=== PATIENT | female | born 1995 | race Caucasian/White ===

== ENCOUNTER 2017-05-12 10:03 | Emergency (ER) | payer OTHER ==
[~2017-05-12] VITALS: Ht 165.1 cm; Wt 75.5 kg
[~2017-05-12 10:03] MED LIST: CIPR500T4 PO; CYCL-319 PO; HYDR-3498 PO; IBUP-1542 PO
[2017-05-12 10:05] VITALS: Ht 165.1 cm; Wt 75.5 kg
[2017-05-12] MEDS ORDERED: KETOROLAC 30 MG INJ IV STA (11:02)
--- NOTE | 2017-05-12 11:17 | ERD ---
ER Documentation Chief Complaint Date/Time DATE: 05/12/17 TIME: 11:13 Chief Complaint pt bib self with c/o abd and back pain on and off for a while HPI 21-year-old female presents with a history of 1-2 years of intermittent crampy lower abdominal pain. She believes it started after delivering her child vaginally. She has had multiple studies including CT scans, ultrasound and is frustrated that she is not given a diagnosis. She has vomiting, fevers, urinary complaints. Denies diarrhea. Denies . She states she had a CT scan over a year ago. Patient states that the lower abdominal pain radiates to her lower back was told that she has kidney problems but no specific details only based upon location of her pain by another provider ROS All systems reviewed and are negative except as per history of present illness. Medications Home Meds Active Scripts Ibuprofen* (Motrin*) 600 Mg Tab, 600 MG PO Q6, #30 TAB Prov:AURELIO AYALA PA-C 03/01/16 Ciprofloxacin Hcl* (Ciprofloxacin Hcl*) 500 Mg Tablet, 500 MG PO BID, #14 TAB Prov:JEIMY TSANG PA-C 04/14/15 Hydrocodone Bit-Acetaminophen* ([place]*) 5-325 Mg Tab, 1 TAB PO Q4H Y for sev, # 30 TAB Prov:RED PEPPER NP 03/23/15 Ibuprofen* (Motrin*) 600 Mg Tab, 600 MG PO Q6H Y for PAIN AND OR ELEVATED TEMP, #30 Prov:RED PEPPER NP 03/23/15 Cyclobenzaprine Hcl* (Cyclobenzaprine Hcl*) 10 Mg Tablet, 5 MG PO TID, #15 TAB Prov:RED PEPPER NP 03/23/15 Allergies Allergies: Coded Allergies: No Known Allergy (Unverified , 02/28/12) PMhx/Soc History of Surgery: No Anesthesia Reaction: No Hx Neurological Disorder: No Hx Respiratory Disorders: No Hx Cardiac Disorders: No Hx Psychiatric Problems: No Hx Miscellaneous Medical Probl: No Hx Alcohol Use: Yes Hx Substance Use: No Hx Tobacco Use: Yes Physical Exam Vitals Vital Signs Date Time Temp Pulse Resp B/P Pulse Ox O2 Delivery O2 Flow Rate FiO2 05/12/17 10:05 97.8 68 20 119/58 98 Physical Exam Const: [] Letter, [id number]. Head: Atraumatic Eyes: Normal Conjunctiva ENT: Normal External Ears, Nose and Mouth. Neck: Full range of motion..~ No meningismus. Resp: Clear to auscultation bilaterally Cardio: Regular rate and rhythm, no murmurs Abd: Soft, very minimal tenderness in the suprapubic area and lower pelvic area. No rebound and no masses., non distended. Normal bowel sounds Skin: No petechiae or rashes Back: No midline or flank tenderness and possibly minimal tenderness in the L4-5 paraspinous muscles. No CVA tenderness. Ext: No cyanosis, or edema Neur: Awake and alert Psych: Normal Mood and Affect Results 24 hrs Current Medications Medications (Trade) Dose Ordered Sig/Micki Route PRN Reason Start Time Stop Time Status Last Admin Dose Admin Ketorolac Tromethamine (Toradol) 30 mg ONCE STAT IV 05/12/17 11:02 05/12/17 11:04 DC Procedures/MDM Patient was counseled on the availability of recommended studies for chronic lower abdominal pain. Her history suggests that she has had comprehensive evaluations for lower abdominal pain. Patient shows no signs or symptoms to suggest acute abdominal pain, febrile illness, sepsis, or emergent condition. Patient was offered repeat laboratory work and possible further radiologic studies given that it has been sometime since her last evaluation here at this hospital. Patient initially agreed but subsequently refused to give urine and wished to leave. Given the patient's had intermittent symptoms for several years and is otherwise well-appearing on advising patient follow-up with primary doctor for further evaluation and outpatient management. She should otherwise return for fevers, vomiting, new or worsening symptoms. Patient subsequently signed out refusing further treatment and AGAINST MEDICAL ADVICE. Departure Diagnosis: Primary Impression: Abdominal pain Abdominal location: lower abdomen, unspecified Qualified Code: R10.30 - Lower abdominal pain Condition: Stable Patient Instructions: Abdominal Pain, [place] Form- 1, Refusal Of Further Treatment DIONTE LIU MD May 12, 2017 11:17
== END 2017-05-12 11:39 | disposition left against medical advice (07) ==
LOC: FTE 10:03
DX: R10.30 Lower abdominal pain, unspecified (principal); Z87.891 Personal history of nicotine dependence
CPT/HCPCS: 99282

== ENCOUNTER 2017-06-10 02:43 | Emergency (ER) | payer OTHER ==
[~2017-06-10] VITALS: Ht 162.6 cm; Wt 79.5 kg
[2017-06-10 02:53] VITALS: Ht 162.6 cm; Wt 79.5 kg
[2017-06-10 04:47] LABS: BASOPHILS % 0.4 % (0.0-2.0); EOSINOPHILS # 0.1 10^3/ul (0.0-0.5); EOSINOPHILS % 0.7 % (0.0-7.0); HEMOGLOBIN 13.5 g/dl (12.0-16.0); LYMPHOCYTES # 4.1 10^3/ul (0.8-2.9); LYMPHOCYTES % 50.3 % (15.0-51.0); MEAN CORPUSCULAR HEMOGLOBIN 28.5 pg (29.0-33.0); MEAN CORPUSCULAR HGB CONC 32.9 g/dl (32.0-37.0); MEAN CORPUSCULAR VOLUME 86.7 fl (82.0-101.0); MEAN PLATELET VOLUME 8.9 fl (7.4-10.4); MONOCYTE # 0.6 10^3/ul (0.3-0.9); MONOCYTES % 6.7 % (0.0-11.0); NEUTROPHIL # 3.4 10^3/ul (1.6-7.5); NEUTROPHILS % 41.8 % (39.0-77.0); PLATELET COUNT 356 10^3/UL (140-415); RED BLOOD COUNT 4.73 10^6/ul (4.20-5.40); RED CELL DISTRIBUTION WIDTH 12.5 % (11.5-14.5); WHITE BLOOD COUNT 8.2 10^3/ul (4.8-10.8)
[2017-06-10 05:00] LABS: ALBUMIN 4.7 g/dl (3.3-4.9); ALBUMIN/GLOBULIN RATIO 1.34; BILIRUBIN,INDIRECT 0.2 mg/dl (0-1.1); BILIRUBIN,TOTAL 0.2 mg/dl (0.2-1.3); CALCIUM 9.4 mg/dl (8.4-10.2); CREATININE 0.66 mg/dl (0.44-1.00); POTASSIUM 3.7 mmol/L (3.5-5.1); TOTAL PROTEIN 8.2 g/dl (6.1-8.1)
--- NOTE | 2017-06-10 05:05 | ERD ---
ER Documentation Chief Complaint Chief Complaint rt lower pelvic pain [employer]. denies n/v HPI 21-year-old female presents here to emergency department for complaints of right lower pelvic pain on and off for the last 4 years, worse in the last 2 days. Patient describes the pain as sharp pain, intermittent pain 4/10 scale, not better or worse with anything. Patient denies any diarrhea or constipation. Patient denies any fever or chills. Patient denies any nausea or vomiting. Patient did not take any medications for pain ROS All systems reviewed and are negative except as per history of present illness. Medications Home Meds Active Scripts Ibuprofen* (Motrin*) 600 Mg Tab, 600 MG PO Q6, #30 TAB Prov:AURELIO AYALA PA-C 03/01/16 Ciprofloxacin Hcl* (Ciprofloxacin Hcl*) 500 Mg Tablet, 500 MG PO BID, #14 TAB Prov:JEIMY TSANG PA-C 04/14/15 Hydrocodone Bit-Acetaminophen* ([place]*) 5-325 Mg Tab, 1 TAB PO Q4H Y for sev, # 30 TAB Prov:RED PEPPER NP 03/23/15 Ibuprofen* (Motrin*) 600 Mg Tab, 600 MG PO Q6H Y for PAIN AND OR ELEVATED TEMP, #30 Prov:RED PEPPER NP 03/23/15 Cyclobenzaprine Hcl* (Cyclobenzaprine Hcl*) 10 Mg Tablet, 5 MG PO TID, #15 TAB Prov:RED PEPPER NP 03/23/15 Allergies Allergies: Coded Allergies: No Known Allergy (Unverified , 06/10/17) PMhx/Soc Medical and Surgical Hx: pt denies Medical Hx, pt denies Surgical Hx History of Surgery: No Anesthesia Reaction: No Hx Neurological Disorder: No Hx Respiratory Disorders: No Hx Cardiac Disorders: No Hx Psychiatric Problems: No Hx Miscellaneous Medical Probl: No Hx Alcohol Use: Yes Hx Substance Use: No Hx Tobacco Use: Yes Smoking Status: Never smoker FmHx Family History: No coronary disease, No diabetes, No other Physical Exam Vitals Vital Signs Date Time Temp Pulse Resp B/P Pulse Ox O2 Delivery O2 Flow Rate FiO2 06/10/17 02:53 98.0 75 18 120/68 98 Physical Exam GENERAL: The patient is well developed and appropriate for usual state of health, in no apparent distress. CHEST: Clear to auscultation bilaterally. There are no rales, wheezes or rhonchi. HEART: Regular rate and rhythm. No murmurs, clicks, rubs or gallops. No S3 or S4. ABDOMEN: Soft, nontender and nondistended. Good bowel sounds. No rebound or guarding. No gross peritonitis. No gross organomegaly or masses. No Boyer sign or McBurney point tenderness. BACK: No midline or flank tenderness. EXTREMITIES: Equal pulses bilaterally. There is no peripheral clubbing, cyanosis or edema. No focal swelling or erythema. Full range of motion. Grossly neurovascularly intact. NEURO: Alert and oriented. Cranial nerves 2-12 intact. Motor strength in all 4 extremities with 5/5 strength. Sensation grossly intact. Normal speech and gait. SKIN: There is no apparent rash or petechia. The skin is warm and dry. HEMATOLOGIC AND LYMPHATIC: There is no evidence of excessive bruising or lymphedema. No gross cervical, axillary, or inguinal lymphadenopathy. Result Diagram: 06/10/17 0434 06/10/17 0434 Results 24 hrs Laboratory Tests Test 06/10/17 04:20 06/10/17 04:34 Urine Color COLORLESS Urine Clarity CLEAR Urine pH 6.0 Urine Specific [place] 1.004 Urine Ketones NEGATIVEmg/dL Urine Nitrite NEGATIVEmg/dL Urine Bilirubin NEGATIVEmg/dL Urine Urobilinogen NEGATIVEmg/dL Urine Leukocyte Esterase NEGATIVELeu/ul Urine Microscopic RBC 0/HPF Urine Microscopic WBC 1/HPF Urine Hemoglobin 1+mg/dL Urine Glucose NEGATIVEmg/dL Urine Total Protein NEGATIVEmg/dl White Blood Count 8.210^3/ul Red Blood Count 4.7310^6/ul Hemoglobin 13.5g/dl Hematocrit 41.0% Mean Corpuscular Volume 86.7fl Mean Corpuscular Hemoglobin 28.5pg Mean Corpuscular Hemoglobin Concent 32.9g/dl Red Cell Distribution Width 12.5% Platelet Count 50131^3/UL Mean Platelet Volume 8.9fl Neutrophils % 41.8% Lymphocytes % 50.3% Monocytes % 6.7% Eosinophils % 0.7% Basophils % 0.4% Nucleated Red Blood Cells % 0.0/100WBC Neutrophils # 3.410^3/ul Lymphocytes # 4.110^3/ul Monocytes # 0.610^3/ul Eosinophils # 0.110^3/ul Basophils # 0.010^3/ul Nucleated Red Blood Cells # 0.010^3/ul Sodium Level 143mmol/L Potassium Level 3.7mmol/L Chloride Level 105mmol/L Carbon Dioxide Level 25mmol/L Anion Gap 17 Blood Urea Nitrogen 9mg/dl Creatinine 0.66mg/dl Glucose Level 89mg/dl Calcium Level 9.4mg/dl Total Bilirubin 0.2mg/dl Direct Bilirubin 0.00mg/dl Indirect Bilirubin 0.2mg/dl Aspartate Amino Transf (AST/SGOT) 27IU/L Alanine Aminotransferase (ALT/SGPT) 27IU/L Alkaline Phosphatase 101IU/L Total Protein 8.2g/dl Albumin 4.7g/dl Globulin 3.50g/dl Albumin/Globulin Ratio 1.34 Lipase 202U/L PROCEDURE: ULTRASOUND PELVIS - TRANSABDOMINAL ONLY CLINICAL INDICATION: 21-year-old female with pelvic pain. TECHNIQUE: Multiple sonographic images of the pelvis were obtained utilizing a transabdominal technique. The images were reviewed on a PACS workstation. COMPARISON: None. FINDINGS: The uterus is visualized and measures 7.4 x 2.9 x 4.4 cm. The endometrial echo complex is within normal limits and measures 4.9 mm. There is no evidence for free fluid. The right ovary has a normal echotexture and measures 3.1 x 2.0 x 1.6 cm. The left ovary has a normal echotexture and measures 2.7 x 1.8 x 2.2 cm. There is flow within the ovaries bilaterally. No adnexal masses are noted. IMPRESSION: Unremarkable transabdominal pelvic ultrasound. .Get Franklin MD, MD Date Time Electronically viewed and signed by .Get Franklin MD, on 06/10/2017 05:34 .M/ CC: RED PEPPER NP Procedures/MDM Medical Decision Making: Symptoms of pelvic pain nonspecific at this time. There is low suspicion for abdominal emergencies at this time. Patients abdominal exam is normal at this time. Patients radiology exam does not show any abdominal emergencies at this time. There is low suspicion for appendicitis , cholecystitis, abdominal aortic aneurysms or peritonitis at this time. There is low suspicion for sepsis. Patient appears well and is hemodynamically stable. Disposition: Home. Condition: Stable Prescription ibuprofen, tramadol Instructions: Patient is advised to take medications as prescribed. Patient is advised to rest, increase fluid intake and do brat diet for next 1-2 days and progress as tolerated. Patient is advised that if symptoms are worse, severe abdominal pain, uncontrolled vomiting, high fever, severe flank pain, worst signs and symptoms, to return to the emergency department immediately. Otherwise, patient can follow up with primary care doctor in 5-7 days. See gynecology specialist. Disclaimer: Inadvertent spelling and grammatical errors are likely due to EHR/ dictation software use and do not reflect on the overall quality of patient care. Also, please note that the electronic time recorded on this note does not necessarily reflect the actual time of the patient encounter. Departure Diagnosis: Primary Impression: Pelvic pain Condition: Stable Patient Instructions: Pelvic Pain, Unknown Cause Additional Instructions: Patient is advised to take medications as prescribed. Patient is advised to rest, increase fluid intake and do brat diet for next 1-2 days and progress as tolerated. Patient is advised that if symptoms are worse, severe abdominal pain , uncontrolled vomiting, high fever, severe flank pain, worst signs and symptoms , to return to the emergency department immediately. Otherwise, patient can follow up with primary care doctor in 5-7 days. See gynecology specialist. RDE PEPPER NP Jun 10, 2017 05:05
[2017-06-10 05:19] LABS: ADD UMIC YES; UR ASCORBIC ACID NEGATIVE (NEGATIVE); UR BILIRUBIN (Dip) NEGATIVE (NEGATIVE); UR BLOOD (Dip) 1+ mg/dL (NEGATIVE); UR CLARITY CLEAR (CLEAR); UR COLOR COLORLESS (YELLOW); UR GLUCOSE (Dip) NEGATIVE (NEGATIVE); UR KETONES (Dip) NEGATIVE (NEGATIVE); UR LEUKOCYTE ESTERASE (Dip) NEGATIVE Leu/ul (NEGATIVE); UR NITRITE (Dip) NEGATIVE (NEGATIVE); UR RBC 0 /HPF (0-5); UR SPECIFIC GRAVITY (Dip) 1.004 (1.003-1.030); UR TOTAL PROTEIN (Dip) NEGATIVE (NEGATIVE); UR UROBILINOGEN (Dip) NEGATIVE (NEGATIVE)
--- NOTE | 2017-06-10 05:35 | RADRPT ---
PROCEDURE: ULTRASOUND PELVIS - TRANSABDOMINAL ONLY CLINICAL INDICATION: 21-year-old female with pelvic pain. TECHNIQUE: Multiple sonographic images of the pelvis were obtained utilizing a transabdominal tech nique. The images were reviewed on a PACS workstation. COMPARISON: None. FINDINGS: The uterus is visualized and measures 7.4 x 2.9 x 4.4 cm. The endometrial echo complex is within nor mal limits and measures 4.9 mm. There is no evidence for free fluid. The right ovary has a normal ec hotexture and measures 3.1 x 2.0 x 1.6 cm. The left ovary has a normal echotexture and measures 2.7 x 1.8 x 2.2 cm. There is flow within the ovaries bilaterally. No adnexal masses are noted. IMPRESSION: Unremarkable transabdominal pelvic ultrasound. .Get Franklin MD, Date Time Electronically viewed and signed by .Get Franklin MD, MD on 06/10/2017 05:34 .[email or web address]/
[2017-06-10] MEDS ORDERED: TRAM50TA2 PO (05:43)
[2017-06-10] MEDS ORDERED: IBUP-1542 PO (05:43)
== END 2017-06-10 05:51 | disposition home or self-care (01) ==
LOC: FTE 02:43
DX: R10.2 Pelvic and perineal pain (principal); Z87.891 Personal history of nicotine dependence
CPT/HCPCS: 36415; 76856; 80053; 81001; 83690; 85025; Z7502

== ENCOUNTER 2017-11-18 14:53 | Emergency (ER) | END 2017-11-18 15:22 | disposition left against medical advice (07) ==

== ENCOUNTER 2017-11-20 23:11 | Emergency (ER) | END 2017-11-21 02:35 | disposition left against medical advice (07) ==